=== PATIENT | female | born 1985 ===

== ENCOUNTER 2016-11-28 09:16 | Emergency (ER) | payer OTHER ==
[2016-11-28 09:22] VITALS: TEMP 98; O2SAT 98; BMI 29.0
--- NOTE | 2016-11-28 09:40 | ED PDOC ---
HPI: General Adult Time Seen by Provider: 11/28/16 09:28 Chief Complaint (Nursing): GI Problem Chief Complaint (Provider): Constipation History Per: Patient History/Exam Limitations: no limitations Onset/Duration Of Symptoms: Days (x 6) Current Symptoms Are (Timing): Still Present Additional Complaint(s): Marianela is a 31 y/o female who is s/p vaginal delivery on Tuesday, and presents to the ED today complaining of constipation, ongoing for the past 6 days. Patient has been passing gas. Denies any associated vomiting, fever, or bleeding. No past medical history. PMD: Unknown Past Medical History Reviewed: Historical Data, Nursing Documentation, Vital Signs Vital Signs: Last Vital Signs Temp 98 F 11/28/16 09:20 Pulse 97 H 11/28/16 09:20 Resp BP 105/61 11/28/16 09:20 Pulse Ox 98 11/28/16 10:34 - Medical History PMH: No Chronic Diseases - Family History Family History: States: Unknown Family Hx - Home Medications Home Medications: Ambulatory Orders Medication Instructions Recorded Docusate Sodium [Colace] 100 mg PO DAILY #10 capsule 11/28/16 - Allergies Allergies/Adverse Reactions: Allergies Allergy/AdvReac Type Severity Reaction Status Date / Time Unobtainable Allergy Verified 11/28/16 09:28 Review of Systems ROS Statement: Except As Marked, All Systems Reviewed And Found Negative Constitutional: Negative for: Fever, Other (Bleeding) Gastrointestinal: Positive for: Constipation, Other (Passing gas). Negative for : Vomiting Physical Exam - Reviewed Nursing Documentation Reviewed: Yes Vital Signs Reviewed: Yes - Physical Exam Appears: Positive for: Non-toxic, No Acute Distress Head Exam: Positive for: ATRAUMATIC, NORMAL INSPECTION, NORMOCEPHALIC Skin: Positive for: Normal Color, Warm, Dry Eye Exam: Positive for: EOMI, Normal appearance, PERRL Neck: Positive for: Normal, Painless ROM, Supple Cardiovascular/Chest: Positive for: Regular Rate, Rhythm. Negative for: Murmur Respiratory: Positive for: Normal Breath Sounds. Negative for: Accessory Muscle Use, Respiratory Distress Gastrointestinal/Abdominal: Positive for: Bowel Sounds, Soft (post-). Negative for: Distended Back: Positive for: Normal Inspection. Negative for: Vertebral Tenderness Extremity: Positive for: Normal ROM. Negative for: Pedal Edema, Deformity Neurologic/Psych: Positive for: Alert, Oriented - ECG O2 Sat by Pulse Oximetry: 98 (RA) Pulse Ox Interpretation: Normal Medical Decision Making Medical Decision Making: Time: 09:33 Impression: Constipation Initial Plan: --Enema x1 --Reevaluation Scribe Attestation: Documented by Marisel Mccormick, acting as a scribe for Rishi Haines MD Provider Scribe Attestation: All medical record entries made by the Scribe were at my direction and personally dictated by me. I have reviewed the chart and agree that the record accurately reflects my personal performance of the history, physical exam, medical decision making, and the department course for this patient. I have also personally directed, reviewed, and agree with the discharge instructions and disposition. Disposition - Clinical Impression Clinical Impression: Constipation - Patient ED Disposition Is Patient to be Admitted: No Counseled Patient/Family Regarding: Diagnosis, Need For Followup, Rx Given - Disposition Disposition: Routine/Home Disposition Time: 10:42 Condition: FAIR Prescriptions: Docusate Sodium [Colace] 100 mg PO DAILY #10 capsule Instructions: Constipation (ED) Forms: [employer] (Kiswahili)
[2016-11-28 10:51] VITALS: BP 110/78; PULSE 75; RESP 18
== END 2016-11-28 10:51 | disposition home or self-care (01) ==
LOC: H.ER 09:16
DX: K59.00 Constipation, unspecified (principal)